=== PATIENT | male | born 1940 | race Caucasian/White ===

== ENCOUNTER 2021-12-25 11:46 | Inpatient (IN) | payer MEDICARE, OTHER ==
[~2021-12-25] VITALS: Ht 175.3 cm; Wt 117.9 kg
[~2021-12-25 11:46] MED LIST: ACET1TAB12 PO; ATEN25TA PO; ATOR10 PO; MEGE20TA3 PO; SERT-439 PO
[2021-12-25 12:42] LABS: BASOPHILS % (AUTO) 0.2 % (0.0-5.0); EOSINOPHILS % (AUTO) 0.2 % (0.0-8.0); HEMATOCRIT 36.2 % (42-54); LYMPHOCYTES % (AUTO) 23.6 % (21.0-51.0); MEAN CORPUSCULAR HEMOGLOBIN 32.9 pg (27.0-33.0); MEAN CORPUSCULAR VOLUME 102.5 fL (79-99); MONOCYTES % (AUTO) 6.6 % (3.0-13.0); NEUTROPHILS % (AUTO) 68.8 % (40.0-77.0); PLATELET COUNT (AUTO) 287 K/uL (130-400); RED BLOOD CELL COUNT(AUTO) 3.53 MIL/uL (4.50-6.20); RED CELL DISTRIBUTION WIDTH 16.1 % (11.0-15.5); WHITE BLOOD COUNT (AUTO) 12.7 K/uL (4.8-10.8)
[2021-12-25 12:57] LABS: ALBUMIN 3.4 g/dL (3.5-5.0); BILIRUBIN,TOTAL 0.7 mg/dL (0.2-1.0); CREATININE 0.8 mg/dL (0.5-1.5); POTASSIUM 3.6 mmol/L (3.5-5.1); TOTAL PROTEIN, SERUM 7.2 g/dL (6.0-8.3)
[2021-12-25] MEDS ORDERED: FUROSEMIDE 40MG VIAL IV ONE (13:00)
[2021-12-25] MEDS ORDERED: CEFTRIAXONE 1G VIAL IVP ONE (13:00)
[2021-12-25] MEDS ORDERED: AZITHROMYCIN 250 MG TABLET PO ONE (13:00)
[2021-12-25 13:01] LABS: ABG BASE EXCESS -0.8 mmol/L (-2.0-3.0); ABG HCO3 22.4 mmol/L (21.0-28.0); ABG OXYGEN SATURATION 91.6 % (95.0-99.0); ABG PCO2 33 mmHg (35-48)
[2021-12-25 13:07] LABS: INR 1.11 (0.85-1.15)
[2021-12-25 13:08] LABS: PARTIAL THROMBOPLASTIN TIME 26.4 SEC (26.3-35.5)
[2021-12-25] MEDS ORDERED: IPRATROPIUM/ALBUTEROL SULFATE 3 ML SOLUTION IH ONE ×2 (13:30→14:53)
[2021-12-25] MEDS ORDERED: IOHEXOL-350 75 ML VIAL IV ONE (13:31)
[2021-12-25] MEDS ORDERED: ACETAMINOPHEN 500 MG TABLET ONE (13:39)
[2021-12-25 13:53] LABS: APPEARANCE,URINE CLEAR (CLEAR); BILIRUBIN,URINE NEGATIVE (NEGATIVE); COLOR,URINE YELLOW (YELLOW); GLUCOSE, URINE (UA) NEGATIVE (NEGATIVE); KETONES,URINE NEGATIVE (NEGATIVE); LEUKOCYTE ESTERASE ,URINE TRACE (NEGATIVE); NITRATE,URINE POSITIVE (NEGATIVE); OCCULT BLOOD,URINE SMALL (NEGATIVE); PROTEIN,URINE TRACE mg/dL (NEGATIVE); UROBILINOGEN,URINE 0.2 mg/dL (0.2-1.0)
[2021-12-25 13:56] LABS: BACTERIA,URINE Rare /HPF (None Seen); RBC,URINE 0-1 /HPF (0-1); SQUAMOUS EPITHELIAL CELL,UR Rare /HPF (0-2)
[2021-12-25] MEDS ORDERED: ACETAMINOPHEN 500 MG TABLET PO ONE (14:00)
[2021-12-25] MEDS ORDERED: ACETAMINOPHEN 500 MG TABLET PO SCH (14:00)
[2021-12-25] MEDS ORDERED: DILTIAZEM 125 MG/25 ML INJ 125 MG in 0.9%NACL 100ML 100 ML IV PRN (14:30)
[2021-12-25] MEDS ORDERED: METOPROLOL TARTRATE 1 MG/ML 5ML VIAL IV ONE ×2 (14:35→15:00)
[2021-12-25] MEDS ORDERED: IPRATROPIUM 0.5 MG/2.5 ML INH IH PRN (15:30)
[2021-12-25] MEDS ORDERED: PANTOPRAZOLE 40 MG TAB DR PO ONE (16:00)
[2021-12-25] MEDS ORDERED: KCL 20 MEQ ERTAB PO ONE (16:00)
[2021-12-25 16:08] LABS: % IRON SATURATION 6.7 % (30-44)
[2021-12-25] MEDS ORDERED: SODIUM CHLORIDE 3% FOR INHALATION 4 ML/AMP VIAL.NEB IH ONE (18:45)
[2021-12-25] MEDS: BUDESONIDE 0.5 MG/2 ML INH IH SCH (18:50)
[2021-12-25] MEDS: CEFTRIAXONE 1G VIAL IVP SCH (20:14)
[2021-12-25] MEDS: DOXYCYCLINE HYCLATE 100 MG TABLET PO SCH (20:14)
[2021-12-25] MEDS: APIXABAN 2.5 MG TABLET PO SCH (20:14)
[2021-12-25] MEDS ORDERED: FOLIC ACID 1 MG TABLET PO ONE (20:30)
[2021-12-25] MEDS: METOPROLOL TARTRATE 25 MG TAB PO SCH (21:28)
[2021-12-25] MEDS: PREDNISONE 5 MG TABLET PO SCH (21:28)
[2021-12-25] MEDS ORDERED: THIAMINE HCL 100 MG/ML 2ML VIAL IVP SCH (21:30)
[2021-12-26] MEDS: BUDESONIDE 0.5 MG/2 ML INH IH SCH ×2 (06:55→18:09)
[2021-12-26 07:01] LABS: BASOPHILS % (AUTO) 0.2 % (0.0-5.0); EOSINOPHILS % (AUTO) 0.2 % (0.0-8.0); HEMATOCRIT 31.5 % (42-54); LYMPHOCYTES % (AUTO) 16.4 % (21.0-51.0); MEAN CORPUSCULAR HEMOGLOBIN 33.6 pg (27.0-33.0); MEAN CORPUSCULAR HGB CONC 32.1 g/dL (32.0-36.0); MEAN CORPUSCULAR VOLUME 104.7 fL (79-99); MONOCYTES % (AUTO) 7.8 % (3.0-13.0); PLATELET COUNT (AUTO) 230 K/uL (130-400); RED BLOOD CELL COUNT(AUTO) 3.01 MIL/uL (4.50-6.20); RED CELL DISTRIBUTION WIDTH 16.4 % (11.0-15.5); WHITE BLOOD COUNT (AUTO) 11.6 K/uL (4.8-10.8)
[2021-12-26 07:24] LABS: ALBUMIN 2.6 g/dL (3.5-5.0); BILIRUBIN,TOTAL 0.6 mg/dL (0.2-1.0); CREATININE 0.8 mg/dL (0.5-1.5); MAGNESIUM 2.4 mg/dL (1.80-2.40); POTASSIUM 3.6 mmol/L (3.5-5.1); TOTAL PROTEIN, SERUM 6.1 g/dL (6.0-8.3)
[2021-12-26 08:13] LABS: ERYTHROCYTE SEDIMENTATION RATE 60 MM/HR (0-20)
[2021-12-26] MEDS: CEFTRIAXONE 1G VIAL IVP SCH (09:03)
[2021-12-26] MEDS: THIAMINE HCL 100 MG/ML 2ML VIAL IVP SCH (09:03)
[2021-12-26] MEDS: PREDNISONE 5 MG TABLET PO SCH ×2 (09:03→22:06)
[2021-12-26] MEDS: METOPROLOL TARTRATE 25 MG TAB PO SCH ×3 (09:03→22:06)
[2021-12-26] MEDS: PANTOPRAZOLE 40 MG TAB DR PO SCH (09:03)
[2021-12-26] MEDS: APIXABAN 2.5 MG TABLET PO SCH ×2 (09:03→22:06)
[2021-12-26] MEDS: DOXYCYCLINE HYCLATE 100 MG TABLET PO SCH ×2 (09:03→22:06)
[2021-12-26] MEDS: FOLIC ACID 1 MG TABLET PO SCH (09:03)
[2021-12-26] MEDS ORDERED: APIX2.5T PO (09:29)
[2021-12-26] MEDS ORDERED: PRED5TAB PO (09:29)
[2021-12-26] MEDS ORDERED: MV-M1TAB20 PO (09:29)
[2021-12-26] MEDS ORDERED: LOVA20TA3 PO (09:29)
[2021-12-26] MEDS ORDERED: FURO20TA4 PO (09:29)
[2021-12-26] MEDS ORDERED: ABIR250T2 PO (09:29)
[2021-12-26] MEDS ORDERED: EZET10TA13 PO (09:29)
[2021-12-26] MEDS ORDERED: MULT-264 PO (09:29)
[2021-12-26] MEDS ORDERED: LEVO25CA4 PO (09:29)
[2021-12-26] MEDS ORDERED: BRIM5DRO2 OP (09:29)
[2021-12-26 11:51] VITALS: BP 93/42
[2021-12-26] MEDS ORDERED: ATEN25TA PO (12:31)
[2021-12-26] MEDS ORDERED: SERT-439 PO (12:31)
[2021-12-26] MEDS: ZOSYN 3.375GM +NS 50ML IV SCH ×2 (12:49→22:08)
[2021-12-26] MEDS ORDERED: 0.9%NACL 1000ML 1,000 ML IV SCH (14:30)
[2021-12-26 14:43] VITALS: BP 138/76
[2021-12-26 16:20] VITALS: BP 137/68
[2021-12-26 20:21] VITALS: BP 146/81
[2021-12-26] MEDS: BRIMONIDINE TARTRATE 0.2% 5 ML BOTTLE OP SCH (21:00)
[2021-12-26] MEDS ORDERED: ACETAMINOPHEN 325 MG TAB PO SCH (22:00)
[2021-12-26] MEDS: SERTRALINE HCL 50 MG TABLET PO SCH (22:05)
[2021-12-26] MEDS: SIMVASTATIN 20 MG TABLET PO SCH (22:05)
[2021-12-26 23:45] VITALS: BP 136/68
[2021-12-27 04:30] VITALS: BP 132/69
[2021-12-27] MEDS: ZOSYN 3.375GM +NS 50ML IV SCH ×3 (05:07→19:58)
[2021-12-27] MEDS: BUDESONIDE 0.5 MG/2 ML INH IH SCH ×2 (06:07→18:09)
[2021-12-27 06:22] LABS: BASOPHILS % (AUTO) 0.1 % (0.0-5.0); EOSINOPHILS % (AUTO) 0.3 % (0.0-8.0); MEAN CORPUSCULAR HEMOGLOBIN 32.2 pg (27.0-33.0); MEAN CORPUSCULAR HGB CONC 31.3 g/dL (32.0-36.0); MONOCYTES % (AUTO) 7.8 % (3.0-13.0); NEUTROPHILS % (AUTO) 72.1 % (40.0-77.0); PLATELET COUNT (AUTO) 238 K/uL (130-400); RED BLOOD CELL COUNT(AUTO) 3.01 MIL/uL (4.50-6.20); RED CELL DISTRIBUTION WIDTH 15.9 % (11.0-15.5); WHITE BLOOD COUNT (AUTO) 8.9 K/uL (4.8-10.8)
[2021-12-27 06:37] LABS: ALBUMIN 2.5 g/dL (3.5-5.0); BILIRUBIN,TOTAL 0.5 mg/dL (0.2-1.0); CREATININE 0.7 mg/dL (0.5-1.5); MAGNESIUM 2.3 mg/dL (1.80-2.40); POTASSIUM 3.5 mmol/L (3.5-5.1)
[2021-12-27] MEDS: ABIRATERONE ACETATE 250 MG PO SCH (07:23)
[2021-12-27 08:00] VITALS: BP 146/71
[2021-12-27] MEDS: EZETIMIBE 10 MG TAB PO SCH (08:25)
[2021-12-27] MEDS: PANTOPRAZOLE 40 MG TAB DR PO SCH (08:25)
[2021-12-27] MEDS: METOPROLOL TARTRATE 25 MG TAB PO SCH ×2 (08:25→14:11)
[2021-12-27] MEDS: APIXABAN 2.5 MG TABLET PO SCH ×2 (08:25→19:57)
[2021-12-27] MEDS: MULTIVITAMIN TABLET PO SCH (08:26)
[2021-12-27] MEDS: FE FUMARATE/FA/MV, MIN COMB#15 1 TAB PO SCH (08:26)
[2021-12-27] MEDS: LEVOTHYROXINE 25 MCG TABLET PO SCH (08:26)
[2021-12-27] MEDS: DOXYCYCLINE HYCLATE 100 MG TABLET PO SCH (08:26)
[2021-12-27] MEDS: PREDNISONE 5 MG TABLET PO SCH ×2 (08:26→19:57)
[2021-12-27] MEDS: FOLIC ACID 1 MG TABLET PO SCH (08:26)
[2021-12-27] MEDS: BRIMONIDINE TARTRATE 0.2% 5 ML BOTTLE OP SCH ×2 (08:27→19:58)
[2021-12-27] MEDS: THIAMINE HCL 100 MG/ML 2ML VIAL IVP SCH (08:27)
[2021-12-27 12:00] VITALS: BP 121/62
[2021-12-27 16:00] VITALS: BP 150/52
[2021-12-27] MEDS ORDERED: FUROSEMIDE 20 MG TABLET PO ONE ×2 (16:30→18:30)
[2021-12-27] MEDS ORDERED: METOPROLOL TARTRATE 50 MG TAB ONE (19:46)
[2021-12-27] MEDS: SERTRALINE HCL 50 MG TABLET PO SCH (19:57)
[2021-12-27] MEDS: SIMVASTATIN 20 MG TABLET PO SCH (19:57)
[2021-12-27] MEDS: METOPROLOL TARTRATE 50 MG TAB PO SCH (19:57)
[2021-12-27] MEDS ORDERED: IRON SUCROSE COMPLEX 100 MG/5 ML VIAL IVP SCH (20:00)
[2021-12-27] MEDS ORDERED: IRON SUCROSE COMPLEX 100 MG in 0.9%NACL 50ML 50 ML IV SCH (20:00)
[2021-12-27 20:09] VITALS: BP 137/69
[2021-12-27 23:57] VITALS: BP 131/78
[2021-12-28 04:33] VITALS: BP 148/84
[2021-12-28] MEDS: ZOSYN 3.375GM +NS 50ML IV SCH ×2 (04:53→12:59)
[2021-12-28] MEDS: LEVOTHYROXINE 25 MCG TABLET PO SCH (05:25)
[2021-12-28] MEDS: ABIRATERONE ACETATE 250 MG PO SCH (05:25)
[2021-12-28] MEDS: BUDESONIDE 0.5 MG/2 ML INH IH SCH (06:13)
[2021-12-28 07:15] LABS: BASOPHILS % (AUTO) 0.1 % (0.0-5.0); EOSINOPHILS % (AUTO) 0.5 % (0.0-8.0); HEMATOCRIT 31.3 % (42-54); LYMPHOCYTES % (AUTO) 23.3 % (21.0-51.0); MEAN CORPUSCULAR HEMOGLOBIN 32.5 pg (27.0-33.0); MEAN CORPUSCULAR HGB CONC 31.6 g/dL (32.0-36.0); MEAN CORPUSCULAR VOLUME 102.6 fL (79-99); NEUTROPHILS % (AUTO) 67.7 % (40.0-77.0); PLATELET COUNT (AUTO) 246 K/uL (130-400); RED BLOOD CELL COUNT(AUTO) 3.05 MIL/uL (4.50-6.20); RED CELL DISTRIBUTION WIDTH 15.7 % (11.0-15.5); WHITE BLOOD COUNT (AUTO) 8.2 K/uL (4.8-10.8)
[2021-12-28 07:32] LABS: ALBUMIN 2.5 g/dL (3.5-5.0); BILIRUBIN,TOTAL 0.4 mg/dL (0.2-1.0); CREATININE 0.9 mg/dL (0.5-1.5); MAGNESIUM 2.3 mg/dL (1.80-2.40); POTASSIUM 3.4 mmol/L (3.5-5.1)
[2021-12-28 08:00] VITALS: BP 175/76
[2021-12-28] MEDS: MULTIVITAMIN TABLET PO SCH (08:40)
[2021-12-28] MEDS: PREDNISONE 5 MG TABLET PO SCH (08:40)
[2021-12-28] MEDS: THIAMINE HCL 100 MG/ML 2ML VIAL IVP SCH (08:40)
[2021-12-28] MEDS: PANTOPRAZOLE 40 MG TAB DR PO SCH (08:40)
[2021-12-28] MEDS: FOLIC ACID 1 MG TABLET PO SCH (08:40)
[2021-12-28] MEDS: FE FUMARATE/FA/MV, MIN COMB#15 1 TAB PO SCH (08:40)
[2021-12-28] MEDS: METOPROLOL TARTRATE 50 MG TAB PO SCH ×2 (08:40→12:59)
[2021-12-28] MEDS: APIXABAN 2.5 MG TABLET PO SCH (08:40)
[2021-12-28] MEDS: EZETIMIBE 10 MG TAB PO SCH (08:40)
[2021-12-28] MEDS: BRIMONIDINE TARTRATE 0.2% 5 ML BOTTLE OP SCH (08:41)
[2021-12-28] MEDS ORDERED: FUROSEMIDE 20 MG TABLET PO SCH (09:00)
[2021-12-28] MEDS ORDERED: METO100T14 PO (14:43)
[2021-12-28] MEDS ORDERED: PANT40TA PO (14:43)
[2021-12-28] MEDS ORDERED: METOPROLOL TARTRATE 50 MG TAB PO SCH (21:00)
== END 2021-12-28 16:30 | disposition home or self-care (01) | DRG 871 ==
LOC: EDH 11:46 → EDHIP 17:21 → 4AH 12-26 11:25
PROVIDERS: ADMIT Internal Medicine; ATTEND Internal Medicine
DX: A41.50 Gram-negative sepsis, unspecified (principal); J15.6 Pneumonia due to other Gram-negative bacteria; N39.0 Urinary tract infection, site not specified; E11.9 Type 2 diabetes mellitus without complications; I11.0 Hypertensive heart disease with heart failure; I25.10 Atherosclerotic heart disease of native coronary artery without angina pectoris; I48.0 Paroxysmal atrial fibrillation; E78.5 Hyperlipidemia, unspecified; I50.9 Heart failure, unspecified; B96.20 Unspecified Escherichia coli [E. coli] as the cause of diseases classified elsewhere; D64.9 Anemia, unspecified; K80.20 Calculus of gallbladder without cholecystitis without obstruction; Z20.822 Contact with and (suspected) exposure to COVID-19
CPT/HCPCS: 36415; 36600; 70450; 71045; 71275; 74176; 76705; 80053; 81001; 82550; 82607; 82728; 82746; 82803; 83540; 83550; 83605; 83735; 83880; 84145; 84484; 85025; 85610; 85651; 85730; 86140; 87040; 87071; 87077; 87088; 87186; 87205; 87449; 87486; 87581; 87633; 87635; 87798; 87804; 92610; 93005; 93970; 94640; 94664; 97039; C9803; G0378; J0696; J1756; J1940; J2543; J3411; J3490; J7030; J7512; Q9967

== ENCOUNTER 2022-08-04 09:28 | Observation (INO) | payer MEDICARE ==
[~2022-08-04] VITALS: Ht 193 cm; Wt 104.3 kg
[~2022-08-04 09:28] MED LIST changes: +ABIR250T2 PO; -ACET1TAB12 PO; +APIX2.5T PO; -ATEN25TA PO; -ATOR10 PO; +BRIM5DRO2 OP; +EZET10TA13 PO; +FURO20TA4 PO; +LEVO25CA4 PO; +LOVA20TA3 PO; -MEGE20TA3 PO; +METO100T14 PO; +MULT-264 PO; +MV-M1TAB20 PO; +PANT40TA PO; +PRED5TAB PO
[2022-08-04 10:19] LABS: BASOPHILS % (AUTO) 0.1 % (0.0-5.0); EOSINOPHILS % (AUTO) 0.5 % (0.0-8.0); HEMATOCRIT 30.2 % (42-54); LYMPHOCYTES % (AUTO) 12.4 % (21.0-51.0); MEAN CORPUSCULAR HEMOGLOBIN 33.4 pg (27.0-33.0); MEAN CORPUSCULAR HGB CONC 32.8 g/dL (32.0-36.0); MONOCYTES % (AUTO) 9.1 % (3.0-13.0); NEUTROPHILS % (AUTO) 77.5 % (40.0-77.0); PLATELET COUNT (AUTO) 355 K/uL (130-400); RED BLOOD CELL COUNT(AUTO) 2.96 MIL/uL (4.50-6.20); RED CELL DISTRIBUTION WIDTH 14.6 % (11.0-15.5); WHITE BLOOD COUNT (AUTO) 8.2 K/uL (4.8-10.8)
[2022-08-04] MEDS ORDERED: FUROSEMIDE 40MG VIAL IV ONE (10:30)
[2022-08-04] MEDS ORDERED: HYDROCODONE/ACETAMINOPHEN 10/325 MG TAB PO ONE (10:30)
[2022-08-04 10:35] LABS: ALBUMIN 2.8 g/dL (3.5-5.0); CREATININE 0.7 mg/dL (0.5-1.5); MAGNESIUM 1.9 mg/dL (1.80-2.40); TOTAL PROTEIN, SERUM 6.5 g/dL (6.0-8.3)
[2022-08-04 10:48] LABS: POTASSIUM 2.8 mmol/L (3.5-5.1)
[2022-08-04] MEDS ORDERED: KCL 20 MEQ ERTAB PO ONE (11:00)
[2022-08-04 11:10] LABS: APPEARANCE,URINE CLEAR (CLEAR); BILIRUBIN,URINE NEGATIVE (NEGATIVE); COLOR,URINE LIGHT-YELLOW (YELLOW); GLUCOSE, URINE (UA) NEGATIVE (NEGATIVE); KETONES,URINE NEGATIVE (NEGATIVE); LEUKOCYTE ESTERASE ,URINE NEGATIVE Leu/uL (NEGATIVE); NITRATE,URINE NEGATIVE (NEGATIVE); OCCULT BLOOD,URINE NEGATIVE (NEGATIVE); PROTEIN,URINE NEGATIVE (NEGATIVE); UROBILINOGEN,URINE 0.2 mg/dL (0.2-1.0)
[2022-08-04 11:25] LABS: B-TYPE NATRIURETIC PEPTIDE 239 pg/mL (0-100)
[2022-08-04] MEDS ORDERED: DEXTROSE 50%-WATER 50 ML DISP.SYRIN IV PRN (17:30)
[2022-08-04] MEDS ORDERED: ZOLPIDEM TARTRATE 5 MG TAB PO PRN (17:30)
[2022-08-04] MEDS ORDERED: MAG/ALUM/SIMETH 30 ML UDCUP PO PRN (17:30)
[2022-08-04] MEDS ORDERED: DIPHENHYDRAMINE HCL 25 MG CAPSULE PO PRN (17:30)
[2022-08-04] MEDS ORDERED: ONDANSETRON 4MG INJ IVP PRN (17:30)
[2022-08-04] MEDS ORDERED: NITROGLYCERIN 0.4 MG SL TAB SL PRN (17:30)
[2022-08-04] MEDS ORDERED: LACTULOSE 20 GM/30 ML UDCUP PO PRN (17:30)
[2022-08-04] MEDS ORDERED: 0.9%NACL 10ML VIAL IVP SCH (17:30)
[2022-08-04] MEDS ORDERED: ACETAMINOPHEN 325 MG TAB PO PRN (17:30)
[2022-08-04] MEDS ORDERED: LIDOCAINE HCL-MPF 1% 2ML VIAL IJ PRN (18:00)
[2022-08-04] MEDS ORDERED: POTASSIUM CHLORIDE 10% ELIXIR 20 MEQ/15 ML UDCUP PO PRN (18:00)
[2022-08-04] MEDS: FUROSEMIDE 20MG VIAL IVP SCH (18:47)
[2022-08-04 18:56] LABS: % IRON SATURATION 15.2 % (30-44)
[2022-08-04] MEDS ORDERED: FAMOTIDINE 20MG TAB ONE (19:16)
[2022-08-04] MEDS: FAMOTIDINE 20MG TAB PO SCH (19:17)
[2022-08-04] MEDS: INSULIN R PO SSI SQ SCH (19:22)
[2022-08-04 20:28] VITALS: BP 157/80
[2022-08-04] MEDS: POTASSIUM CHLORIDE 20MEQ/100ML 100 ML IV PRN (23:02)
[2022-08-04] MEDS ORDERED: METOPROLOL TARTRATE 1 MG/ML 5ML VIAL IV PRN (23:30)
[2022-08-04] MEDS: KCL 20 MEQ ERTAB PO PRN (23:36)
[2022-08-04] MEDS: METOPROLOL TARTRATE 50 MG TAB PO SCH (23:36)
[2022-08-05] VITALS (7 sets, daily range): BP systolic 111–154; BP diastolic 56–85
[2022-08-05] MEDS: ACETAMINOPHEN 325 MG TAB PO PRN (00:30)
[2022-08-05] MEDS: FUROSEMIDE 20MG VIAL IVP SCH ×3 (01:45→18:28)
[2022-08-05] MEDS: KCL 20 MEQ ERTAB PO PRN ×4 (01:50→09:27)
[2022-08-05] MEDS: POTASSIUM CHLORIDE 20MEQ/100ML 100 ML IV PRN (02:22)
[2022-08-05 03:25] LABS: BASOPHILS % (AUTO) 0.1 % (0.0-5.0); EOSINOPHILS % (AUTO) 0.5 % (0.0-8.0); HEMATOCRIT 27.5 % (42-54); LYMPHOCYTES % (AUTO) 13.9 % (21.0-51.0); MEAN CORPUSCULAR HEMOGLOBIN 33.9 pg (27.0-33.0); MEAN CORPUSCULAR HGB CONC 33.5 g/dL (32.0-36.0); MEAN CORPUSCULAR VOLUME 101.5 fL (79-99); MONOCYTES % (AUTO) 9.9 % (3.0-13.0); NEUTROPHILS % (AUTO) 75.2 % (40.0-77.0); PLATELET COUNT (AUTO) 301 K/uL (130-400); RED BLOOD CELL COUNT(AUTO) 2.71 MIL/uL (4.50-6.20); RED CELL DISTRIBUTION WIDTH 14.8 % (11.0-15.5); WHITE BLOOD COUNT (AUTO) 9.3 K/uL (4.8-10.8)
[2022-08-05 03:34] LABS: CREATININE 0.7 mg/dL (0.5-1.5)
[2022-08-05] MEDS: INSULIN R PO SSI SQ SCH ×4 (06:06→20:03)
[2022-08-05 08:55] LABS: INR 1.14 (0.85-1.15); PROTHROMBIN TIME 12.3 SEC (9.6-11.6)
[2022-08-05 08:57] LABS: PARTIAL THROMBOPLASTIN TIME 29.3 SEC (26.3-35.5)
[2022-08-05] MEDS ORDERED: ENOXAPARIN SODIUM 40 MG/0.4 ML SYRINGE SQ SCH (09:00)
[2022-08-05 09:08] LABS: THYROID STIMULATING HORMONE 2.44 uIU/mL (0.36-3.74)
[2022-08-05] MEDS: METOPROLOL TARTRATE 50 MG TAB PO SCH ×2 (09:26→20:04)
[2022-08-05] MEDS: FAMOTIDINE 20MG TAB PO SCH ×2 (09:27→20:04)
[2022-08-05] MEDS: APIXABAN 2.5 MG TABLET PO SCH ×2 (09:32→20:04)
[2022-08-05 09:59] LABS: CRP QUANTITATIVE 260.8 mg/L (0.00-9.0)
[2022-08-05] MEDS ORDERED: APAL60TA PO (13:30)
[2022-08-05 16:28] LABS: MAGNESIUM 1.9 mg/dL (1.80-2.40); POTASSIUM 3.8 mmol/L (3.5-5.1)
[2022-08-06] MEDS: FUROSEMIDE 20MG VIAL IVP SCH ×3 (02:24→18:24)
[2022-08-06 04:00] VITALS: BP 130/71
[2022-08-06 04:55] LABS: BASOPHILS % (AUTO) 0.2 % (0.0-5.0); EOSINOPHILS % (AUTO) 0.9 % (0.0-8.0); HEMATOCRIT 28.5 % (42-54); LYMPHOCYTES % (AUTO) 18.8 % (21.0-51.0); MEAN CORPUSCULAR HEMOGLOBIN 33.2 pg (27.0-33.0); MEAN CORPUSCULAR HGB CONC 32.3 g/dL (32.0-36.0); MEAN CORPUSCULAR VOLUME 102.9 fL (79-99); MONOCYTES % (AUTO) 10.4 % (3.0-13.0); PLATELET COUNT (AUTO) 314 K/uL (130-400); RED BLOOD CELL COUNT(AUTO) 2.77 MIL/uL (4.50-6.20); RED CELL DISTRIBUTION WIDTH 14.8 % (11.0-15.5); WHITE BLOOD COUNT (AUTO) 8.7 K/uL (4.8-10.8)
[2022-08-06 05:11] LABS: ALBUMIN 2.4 g/dL (3.5-5.0); CREATININE 0.7 mg/dL (0.5-1.5); MAGNESIUM 1.9 mg/dL (1.80-2.40); POTASSIUM 3.6 mmol/L (3.5-5.1); TOTAL PROTEIN, SERUM 6.1 g/dL (6.0-8.3)
[2022-08-06] MEDS: KCL 20 MEQ ERTAB PO PRN ×2 (05:44→08:25)
[2022-08-06 07:05] VITALS: BP 125/58
[2022-08-06] MEDS: INSULIN R PO SSI SQ SCH ×4 (07:21→21:00)
[2022-08-06] MEDS: PANTOPRAZOLE 40 MG TAB DR PO SCH (08:17)
[2022-08-06] MEDS: MULTIVITAMIN TABLET PO SCH (08:17)
[2022-08-06] MEDS: ACETAMINOPHEN 325 MG TAB PO PRN (08:17)
[2022-08-06] MEDS: APIXABAN 2.5 MG TABLET PO SCH ×2 (08:18→21:25)
[2022-08-06] MEDS: METOPROLOL TARTRATE 50 MG TAB PO SCH ×2 (08:18→21:25)
[2022-08-06] MEDS: LEVOTHYROXINE 25 MCG TABLET PO SCH (08:18)
[2022-08-06] MEDS: EZETIMIBE 10 MG TAB PO SCH (08:19)
[2022-08-06] MEDS: APALUTAMIDE 60 MG PO SCH (09:00)
[2022-08-06] MEDS: BRIMONIDINE TARTRATE 0.2% 5 ML BOTTLE OP SCH ×2 (09:39→21:26)
[2022-08-06 11:30] VITALS: BP 94/64
[2022-08-06 16:00] VITALS: BP 114/56
[2022-08-06 19:12] VITALS: BP 113/58
[2022-08-06] MEDS: SIMVASTATIN 20 MG TABLET PO SCH (21:25)
[2022-08-06] MEDS: SERTRALINE HCL 50 MG TABLET PO SCH (21:25)
[2022-08-07] VITALS (7 sets, daily range): BP systolic 96–144; BP diastolic 52–74
[2022-08-07] MEDS: FUROSEMIDE 20MG VIAL IVP SCH ×3 (03:04→18:34)
[2022-08-07 05:34] LABS: HEMATOCRIT 27.8 % (42-54); MEAN CORPUSCULAR HEMOGLOBIN 33.5 pg (27.0-33.0); MEAN CORPUSCULAR HGB CONC 32.4 g/dL (32.0-36.0); MEAN CORPUSCULAR VOLUME 103.3 fL (79-99); RED BLOOD CELL COUNT(AUTO) 2.69 MIL/uL (4.50-6.20); RED CELL DISTRIBUTION WIDTH 14.7 % (11.0-15.5); WHITE BLOOD COUNT (AUTO) 7.7 K/uL (4.8-10.8)
[2022-08-07 05:43] LABS: CREATININE 0.8 mg/dL (0.5-1.5); POTASSIUM 3.6 mmol/L (3.5-5.1)
[2022-08-07] MEDS: INSULIN R PO SSI SQ SCH ×4 (05:59→20:37)
[2022-08-07] MEDS: LEVOTHYROXINE 25 MCG TABLET PO SCH (06:01)
[2022-08-07] MEDS: APALUTAMIDE 60 MG PO SCH (09:00)
[2022-08-07] MEDS: MULTIVITAMIN TABLET PO SCH (10:19)
[2022-08-07] MEDS: APIXABAN 2.5 MG TABLET PO SCH ×2 (10:20→20:31)
[2022-08-07] MEDS: EZETIMIBE 10 MG TAB PO SCH (10:20)
[2022-08-07] MEDS: METOPROLOL TARTRATE 50 MG TAB PO SCH ×2 (10:20→20:31)
[2022-08-07] MEDS: PANTOPRAZOLE 40 MG TAB DR PO SCH (10:20)
[2022-08-07] MEDS: BRIMONIDINE TARTRATE 0.2% 5 ML BOTTLE OP SCH ×2 (10:21→20:31)
[2022-08-07] MEDS: SIMVASTATIN 20 MG TABLET PO SCH (20:31)
[2022-08-07] MEDS: SERTRALINE HCL 50 MG TABLET PO SCH (20:31)
[2022-08-08] MEDS: FUROSEMIDE 20MG VIAL IVP SCH ×2 (02:32→09:22)
[2022-08-08 04:00] VITALS: BP 121/67
[2022-08-08] MEDS: INSULIN R PO SSI SQ SCH ×3 (05:55→16:30)
[2022-08-08] MEDS: LEVOTHYROXINE 25 MCG TABLET PO SCH (05:58)
[2022-08-08 07:30] VITALS: BP 121/56
[2022-08-08] MEDS: BRIMONIDINE TARTRATE 0.2% 5 ML BOTTLE OP SCH (09:00)
[2022-08-08] MEDS: APALUTAMIDE 60 MG PO SCH (09:00)
[2022-08-08] MEDS: APIXABAN 2.5 MG TABLET PO SCH (09:22)
[2022-08-08] MEDS: METOPROLOL TARTRATE 50 MG TAB PO SCH (09:22)
[2022-08-08] MEDS: EZETIMIBE 10 MG TAB PO SCH (09:22)
[2022-08-08] MEDS: MULTIVITAMIN TABLET PO SCH (09:22)
[2022-08-08] MEDS: PANTOPRAZOLE 40 MG TAB DR PO SCH (09:23)
[2022-08-08 11:46] LABS: HEMATOCRIT 27.4 % (42-54); MEAN CORPUSCULAR HEMOGLOBIN 33.1 pg (27.0-33.0); MEAN CORPUSCULAR HGB CONC 32.1 g/dL (32.0-36.0); NUCLEATED RED BLOOD CELLS 0.3 % (0.0-0.19); RED BLOOD CELL COUNT(AUTO) 2.66 MIL/uL (4.50-6.20); RED CELL DISTRIBUTION WIDTH 14.6 % (11.0-15.5); WHITE BLOOD COUNT (AUTO) 7.3 K/uL (4.8-10.8)
[2022-08-08 11:52] LABS: CREATININE 0.7 mg/dL (0.5-1.5)
[2022-08-08 12:00] VITALS: BP 101/60
[2022-08-08 16:00] VITALS: BP 138/69
== END 2022-08-08 18:55 | disposition home or self-care (01) ==
LOC: EDH 09:28 → EDHIP 17:23 → INTOOBSV 17:23 → 2AH 20:33 → 4BH 08-07 03:13
PROVIDERS: ADMIT Family Medicine; ATTEND Family Medicine
DX: I11.0 Hypertensive heart disease with heart failure (principal); Z20.822 Contact with and (suspected) exposure to COVID-19; I50.43 Acute on chronic combined systolic (congestive) and diastolic (congestive) heart failure; I48.20 Chronic atrial fibrillation, unspecified; I48.0 Paroxysmal atrial fibrillation; E87.6 Hypokalemia; E87.70 Fluid overload, unspecified; E78.5 Hyperlipidemia, unspecified; F32.A Depression, unspecified; E03.9 Hypothyroidism, unspecified; I25.10 Atherosclerotic heart disease of native coronary artery without angina pectoris; E78.00 Pure hypercholesterolemia, unspecified; E46 Unspecified protein-calorie malnutrition; L98.429 Non-pressure chronic ulcer of back with unspecified severity; Z85.46 Personal history of malignant neoplasm of prostate; Z87.891 Personal history of nicotine dependence; Z95.1 Presence of aortocoronary bypass graft; Z95.5 Presence of coronary angioplasty implant and graft; Z83.3 Family history of diabetes mellitus; Z96.641 Presence of right artificial hip joint; Z96.653 Presence of artificial knee joint, bilateral; Z79.899 Other long term (current) drug therapy
CPT/HCPCS: 96376 ×5; 96365; 96375; 99285; 83540; 83550; 83735 ×4; 84484 ×2; 84132 ×3; 80053 ×2; 83880 ×2; 85025 ×3; 82948 ×15; 82607; 82746; 82533; 81003; 36415 ×5; 71045; 93005 ×3; 96366; 84443; 80048 ×3; 85610; 85730; 85651; 86140; 93306; 93356; 93970 ×2; 97161; 97039 ×7; 84145; 87804 ×2; 87635; 85027 ×2; 85378; 94760; 97530; J3480 ×2; J1940 ×14; G0378 ×73; J1650